=== PATIENT | female | born 1960 | race Caucasian/White ===

== ENCOUNTER → 2016-12-18 | Outpatient (CLI) | payer BC ==
--- NOTE | ~2016-12-18 | MR17 ---
[facility] A Service of [facility] & [facility] RADIOLOGY TEXT RESULTS PATIENT: MARLYN NARANJO LOCATION: [facility] : 62 UNIT #: [id number] AGE: [address]: Daniel Galindo II, MD SEX: F ORDER DR: [id number] [facility] [address] [place], [place] [address] [id number] O MR#: [id number] Acc #: [id number] NAME: MARLYN NARANJO : 1960 SEX: F STUDY DATE/TIME: 12/18/2016 16:28 UNIT: [facility] ROOM: STUDY DESCRIPTION: MR Brain WWo Contrast Attending Physician: Daniel Galindo II., M.D. Referring Physician: Daniel Galindo II., M.D. Ordering Physician: Daniel Galindo II., M.D. Primary Care Physician: Vincent Camp D.O. MEDICAL IMAGING REPORT This report is preliminary unless electronic signature is present EXAM MR brain, 12/18 at 16:28 INDICATIONS Left eye does not open all the way when patient first wakes up in the morning. Symptoms for 4 months. Ptosis. TECHNIQUE Multisequence, multiplanar imaging was performed through the brain before and after the IV administration of 15 mL of MultiHance contrast. No comparison. FINDINGS Diffusion imaging reveals no evidence of acute or subacute ischemia. Ventricular size and configuration are within normal limits. There are a few T2 hyperintensities in the white matter, which are likely the sequelae of chronic small vessel ischemic disease. White matter signal is otherwise normal. No masses or pathologic contrast enhancement are identified. Craniovertebral junction is normal. For a description of the vasculature, please see the MRA report, dictated separately. IMPRESSION No acute intracranial abnormalities. There are a few punctate T2 hyperintensities in the white matter, which are probably the sequelae of chronic small vessel ischemic disease. No masses or pathologic enhancement are identified. Dictated by... Vincent Treadwell Jr., M.D. THIS IS AN ELECTRONICALLY VERIFIED REPORT Vincent Treadwell Jr., M.D. at 12/19/2016 6:01 AM [facility] A Service of [facility] & [facility] RADIOLOGY TEXT RESULTS PATIENT: MARLYN NARANJO [facility] UNIT #: [id number] AGE: [address]: Daniel Galindo II, MD SEX: F ORDER DR: SERA/dina TD: 12/19/2016 03:18 JOB #: [id number] MEDICAL IMAGING REPORT Page 1 of 1 COPY
--- NOTE | ~2016-12-18 | MR122 ---
[facility] A Service of [facility] RADIOLOGY TEXT RESULTS PATIENT: MARLYN NARANJO LOCATION: [facility] : 62 UNIT #: [id number] AGE: [address]: Daniel Galindo II, MD SEX: F ORDER DR: [id number] [facility] [address] [place], [place] [address] [id number] O MR#: [id number] Acc #: [id number] NAME: MARLYN NARANJO : 1960 SEX: F STUDY DATE/TIME: 12/18/2016 16:45 UNIT: [facility] ROOM: STUDY DESCRIPTION: MR MRA Head Wo Contrast Attending Physician: Daniel Galindo II., M.D. Referring Physician: Daniel Galindo II., M.D. Ordering Physician: Daniel Galindo II., M.D. Primary Care Physician: Vincent Camp D.O. MRI CENTER REPORT This report is preliminary unless electronic signature is present. EXAM Head MRA no contrast, 12/18/2016 PROCEDURE Axial [id number] head MRA with three-dimensional reformats. COMPARISON Brain MRI, 12/18/2016 HISTORY Left eye/eyelid weakness for 4 months. FINDINGS Both vertebral arteries and both internal carotid arteries are normally patent. The basilar artery is normally patent. The left A1 anterior cerebral is tiny but patent but the right A1 is markedly dominant and supplies both A2 territories. The right posterior communicator is patent but the left is not identified. There is no convincing evidence of intracranial aneurysm or intracranial flow-limiting stenosis. IMPRESSION Dominant right ICA as noted above, but symmetric intracranial vascularity without any region or zone of suspected hypovascularity. No branch vessel occlusions. No evidence of intracranial aneurysm. Dictated by... Allan King M.D. THIS IS AN ELECTRONICALLY VERIFIED REPORT Allan King M.D. at 12/20/2016 1:19 PM SUSAN/manuel TD: 12/19/2016 10:16 [facility] A Service of [facility] RADIOLOGY TEXT RESULTS PATIENT: MARLYN NARANJO LOCATION: [facility] : 62 UNIT #: [id number] AGE: [address]: Daniel Galindo II, MD SEX: F ORDER DR: LAKHWINDER #: [id number] MRI CENTER REPORT Page 1 of 1 COPY
== END | disposition home or self-care (01) ==
LOC: CMRI 15:54
DX: H02.409 Unspecified ptosis of unspecified eyelid (principal); R93.8 Abnormal findings on diagnostic imaging of other specified body structures
CPT/HCPCS: 70544; 70553; A9577